=== PATIENT | male | born 1945 | race Caucasian/White ===

== ENCOUNTER 2017-01-30 06:11 | Emergency (ER) | payer MEDICARE, OTHER ==
[~2017-01-30] VITALS: Ht 177.8 cm; Wt 70.0 kg
[2017-01-30 06:12] VITALS: BP 134/74; PULSE 80; RESP 16; TEMP 97.6; O2SAT 96
[2017-01-30] MEDS ORDERED: GABA600T PO (06:37)
[2017-01-30] MEDS ORDERED: SIMV5TAB3 PO (06:37)
[2017-01-30] MEDS ORDERED: ARIP1TAB12 PO (06:37)
[2017-01-30] MEDS ORDERED: SIMV40TA PO (06:37)
[2017-01-30] MEDS ORDERED: MELO-1 PO (06:37)
[2017-01-30] MEDS ORDERED: CITA40TA4 PO (06:37)
[2017-01-30] MEDS ORDERED: GABA300C5 PO (06:37)
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
== END 2017-01-30 07:24 | disposition home or self-care (01) ==
LOC: NEPE 06:11
DX: R10.9 Unspecified abdominal pain (principal); E78.00 Pure hypercholesterolemia, unspecified; Y92.410 Unspecified street and highway as the place of occurrence of the external cause; V03.10XA Pedestrian on foot injured in collision with car, pick-up truck or van in traffic accident, initial encounter; Y93.01 Activity, walking, marching and hiking; Y99.0 Civilian activity done for income or pay
CPT/HCPCS: 99283